=== PATIENT | female | born 2000 ===

== ENCOUNTER 2019-12-18 16:40 | Outpatient (CLI) | payer MEDICAID ==
[2019-12-18 16:55] VITALS: BP 111/60
[2019-12-18] MEDS ORDERED: LACTATED RINGERS 1,000 ML IV SCH (17:00)
[2019-12-18] MEDS ORDERED: BETAMET ACET/BETAMET NA PH 6 MG/ML INJ 5 ML MDV IM SCH (17:00)
[2019-12-18 17:40] LABS: Bilirubin,Urine NEG (Negative); Blood,Urine NEG (Negative); Color,Urine Amber (Yellow); Mucus,Urine 3+ /HPF
== END 2019-12-18 19:12 | disposition home or self-care (01) ==
LOC: TRG 16:40
PROVIDERS: ATTEND Obstetrics & Gynecology
DX: O47.03 False labor before 37 completed weeks of gestation, third trimester (principal); Z3A.32 32 weeks gestation of pregnancy
CPT/HCPCS: 81001; 96360; 96361; 96372; J0702; J7120

== ENCOUNTER 2019-12-19 17:32 | Outpatient (CLI) | payer MEDICAID ==
[2019-12-19] MEDS ORDERED: BETAMET ACET/BETAMET NA PH 6 MG/ML INJ 5 ML MDV IM ONE (18:40)
== END 2019-12-19 18:49 | disposition home or self-care (01) ==
LOC: TRG 17:32
PROVIDERS: ATTEND Obstetrics & Gynecology
DX: O47.03 False labor before 37 completed weeks of gestation, third trimester (principal); Z3A.37 37 weeks gestation of pregnancy
CPT/HCPCS: 96372; J0702